=== PATIENT | male | born 1940 | race Caucasian/White ===

== ENCOUNTER 2016-09-21 17:55 | Inpatient (IN) | payer OTHER ==
[~2016-09-21] VITALS: Ht 170.2 cm; Wt 83.2 kg
--- NOTE | ~2016-09-21 | 2DMMODE ---
[facility] [place] [employer] [place] [address] 2 D/M-MODE ECHOCARDIOGRAM Name: TANO KEMP Room #: 247-P [facility] IN .#: [id number] Admission: 09/22/16 Attend Phys: Eddie Chambers, Discharge: Date of : 42 Date of Service: 09/22/16 1124 Report #: [id number] THIS REPORT FOR: //name// APPROVED REPORT EXAM: Comprehensive 2D, Doppler, and color-flow Echocardiogram Patient Location: In-Patient Other Information Study Quality: Adequate Indications CAD Study was performed STAT in the Video Control Operator. Tricuspid Valve TR Peak Rupert.: 2.18 m/s TR Peak Gr.: 18.93 mmHg Left Ventricle The left ventricle is normal size. There is normal LV segmental wall motion. There is normal left ventricular wall thickness. The left ventricular systolic function is normal. The left ventricular ejection fraction is within the normal range. LVEF is 55-60%. Diastolic function was not assessed. Right Ventricle Right ventricle is dilated. The right ventricular systolic function is normal. Atria The left atrium size is normal. Right atrium is dilated. Aortic Valve The aortic valve is normal in structure. No aortic regurgitation is present. There is no aortic valvular stenosis. Mitral Valve The mitral valve is normal in structure. There is no mitral valve regurgitation noted. Tricuspid Valve The tricuspid valve is normal in structure. There is moderate [facility] [address] [place] [address] 2 D/M-MODE ECHOCARDIOGRAM Name: TANO KEMP Room #: 247-P ADM IN M.R.#: [id number] Admission: 09/22/16 Attend Phys: Eddie Chambers, Discharge: Date of : 42 Date of Service: 09/22/16 1124 Report #: [id number] tricuspid regurgitation.There is no pulmonary hypertension. The estimated PAP is 19 mmHg plus the right atrial pressure. Pulmonic Valve The pulmonary valve is normal in structure. There is no pulmonic valvular regurgitation. Great Vessels The aortic root is normal in size. IVC is not visualized. Pericardium There is no pericardial effusion. <Conclusion> The left ventricle is normal size. There is normal LV segmental wall motion. LVEF is 55-60%. Right ventricle is dilated. The right ventricular systolic function is normal. Right atrium is dilated. There is moderate tricuspid regurgitation.There is no pulmonary hypertension. The estimated PAP is 19 mmHg plus the right atrial pressure. <ELECTRONICALLY SIGNED> By: Bladimir Dowell MD 09/22/16 1124 1124 1124 Bladimir Dowell MD /INF
--- NOTE | ~2016-09-21 | D ---
[facility] [place] [address] DISCHARGE SUMMARY Name: TANO KEMP Room #: 203-P [facility] IN M.R.#: [id number] Admission: 09/22/16 Attend Phys: Eddie Chambers MD, Discharge: 09/24/16 Date of : 42 Report #: [id number] THIS REPORT FOR: //name// CC: FAM unknown Eddie Gold MD HOSPITAL COURSE: The patient is a 75-year-old male who was admitted with an accelerating anginal pattern, despite the fact that his insurance company refused to allow cardiac catheterization prior to that. Subsequently he was taken to the catheterization lab which revealed multiple areas of subtotal RCA, partially collateralized. He subsequently was able to have temporary vessel closure due to the complex anatomy, was able to eventually dilate and stent proximal, mid, and distal RCA. There was placement of a 2.75 x 30 Resolute drug-eluting stent, postdilated 3.1 mm in the proximal portion of this vessel, and these were all subtotaled areas and very complex, in fact the proximal area was closed ____ with the wire, a 2.5 x 18 Resolute ____ at the distal right and then the PDA with a 2.5 x 12 Resolute. Final result was excellent. Troponin went to 9, resolution of EKG changes and chest pain after the procedure. The EKG is T-wave flattening throughout the inferolateral leads and remains in sinus rhythm. He had moderate disease in his left system otherwise, 60% LAD diagonal lesions which we will keep an eye on this ____ subtle progression there since the last catheterization in 2013. A Redmond-Yoel catheter replaced due to the mckenzie course in the catheterization lab and IV fluid was given ____ presumed partial right ventricular infarct, although again infarct was minimal due to the only temporary closure of this vessel. Up and ambulating, doing well. He will be discharged to home on dual antiplatelet therapy, full aspirin and Effient, in addition lisinopril 2.5, atorvastatin 40, gabapentin, Toprol 12.5, omeprazole. DISCHARGE DIAGNOSES: Coronary artery disease, unstable angina, successful percutaneous transluminal coronary angioplasty stent times 3, 2 to the right coronary and 1 to the posterior descending coronary artery. 2. Moderate left anterior descending coronary artery diagonal disease as stated above. 3. Hypertension. 4. Hypercholesterolemia. 5. Degenerative joint disease. 6. Abdominal aortic aneurysm 4.8 cm. This will be followed closely. We are planning on potential aortic stent graft. This should be put on hold for at least 6 months. I will see him in 2 to 3 months with an abdominal ultrasound in followup. Then, we will make some plans for repair of the abdominal aortic aneurysm in the next [address] [address] DISCHARGE SUMMARY Name: TANO KEMP Room #: 203-P DIS IN M.R.#: [id number] Admission: 09/22/16 Attend Phys: Eddie Chambers MD, Discharge: 09/24/16 Date of : 42 Report #: [id number] 6 to 12 months. We will repeat the abdominal ultrasound in 3 months when I see him. No lifting for 48 hours, no lying in tub, Jacuzzi, or Orr for a week. <ELECTRONICALLY SIGNED> By: Eddie Chambers MD, FACC 09/27/16 0935 0739 1012 Eddie Chambers MD, FACC /nt
--- NOTE | ~2016-09-21 | EKG ---
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: Sae PETERS : 1940 Requested By: Melanie Sousa Order Number: [id number] MD: David Tobar Measurements Intervals [place] Rate: 68 P: 27 SD: 127 QRS: 14 QRSD: 97 T: 10 QT: 399 QTc: 425 Interpretive Statements Sinus rhythm Abnormal R-wave progression, early transition Borderline T wave abnormalities No previous ECG available for comparison Electronically Signed On 09-22-2016 7:50:29 CDT by David Tobar [email or web address] <ELECTRONICALLY SIGNED> By: David Tobar MD, [facility] 09/22/16 0750 03 03 David Tobar MD, FAC /EPI
--- NOTE | ~2016-09-21 | CATHLAB ---
[facility] [address] [place] [address] INVASIVE PROCEDURE REPORT Name: TANO KEMP Room #: 203-P [facility] IN M.R.#: [id number] Admission: 09/22/16 Attend Phys: Eddie Chambers, Discharge: 09/24/16 Date of : 42 Date of Service: 09/22/16 0957 Report #: [id number] THIS REPORT FOR: //name// CC: FAM unknown Eddie Chambers PROCEDURES: Left ventriculography, coronary angiography, abdominal aortography, PTCA stent times 2 to the RCA, PTCA stent to the PDA and Bruceton-Yoel catheter left in for monitoring purposes. DESCRIPTION OF PROCEDURE: The patient brought to the catheterization lab with anginal symptoms accelerating. The right groin prepped and draped in sterile manner. Xylocaine 1% was used for local anesthesia. Versed was given for conscious sedation. A 6-Macanese sheath in the right femoral artery. A 7-Macanese in the right femoral vein. Initially, a straight pigtail catheter performed a single SHEN ventriculogram with mild LV dysfunction globally, slightly worse inferior base and EF of 50. FL4 for the left coronary system, FR4 for the right coronary system. A 60% mid LAD, 70% proximal diagonal, had not significantly progressed. Left main free of disease. Circ OM nondominant with large, but mildly diseased. Dominant right subtotally occluded now, with complex lesion proximally. Distal lesion high grade subtotal 99% and then an ostial PDA also subtotal. There was some collateral filling from the left system. I elected to attempt to dilate this vessel. I subsequently had closure of the proximal vessel immediately after placing a wire in this complex proximal segment. With a fair amount of difficulty time, multiple wires and balloon support, was able to eventually cross this lesion and then distally still had difficulty wiring the 2 subtotal distal lesions. I was able to restore some flow. I did transiently have vessel closure. Heparin had been given initially and additional heparin. I was able to restore some flow and able to wire the distal vessel. I then subsequently stented the proximal segment with a 2.75 x 30 Resolute drug-eluting stent. That result was excellent. Still had difficulty with the distal flow. I dilated distally again and then placed a 2.5 x 12 at the ostium PDA, Resolute drug eluting and then a 2.5 x 18 in the distal right. Both of these had been subtotally occluded. I was able then to restore JAKE grade 3 flow. Significant discomfort, pain and EKG changes, all which are resolving. The EKG has resolved. Hypotensive, responding to some fluids. I placed a Bruceton-Yoel catheter for monitoring purposes. This was left in. Will be sent to the ICU in guarded, but certainly improving condition after this right coronary artery closure. Integrilin bolus and drip has been initiated. Matthews catheter is being placed. I did receive one amp of atropine while still significantly bradycardic. This is essentially resolved. Pulses in the 50s. Vascular sheaths are secured. No hematoma. HEMODYNAMICS: Aortic 118/76. LV 112/11. RA mean of 9. RV 28/3. PA 24/13 with a mean of 17. The wedge was 13-14. IMPRESSION: [facility] [address] [place] [address] INVASIVE PROCEDURE REPORT Name: TANO KEMP Room #: 203-P [facility] IN [place]#: [id number] Admission: 09/22/16 Attend Phys: Eddie Chambers, Discharge: 09/24/16 Date of : 42 Date of Service: 09/22/16 0957 Report #: [id number] 1. Successful percutaneous transluminal coronary angioplasty stent of the subtotal long complex proximal right coronary artery with a 2.75 x 30 Resolute stent of 3.0 mm. 2. Successful percutaneous transluminal coronary angioplasty stent distal right subtotally occluded with a 2.5 x 18 Resolute drug-eluting stent. 3. Successful percutaneous transluminal coronary angioplasty stent of the ostial posterior descending artery totally occluded with a 2.5 x 12 Resolute drug-eluting stent. 4. Left main free of disease. 5. Left anterior descending with 50% to 60% mid vessel lesion, 60% to 70% diagonal and 60% to 70% proximal. We will follow, these have not progressed. 6. Circumflex obtuse marginal nondominant, with mild disease, large. 7. Left ventricle near normal with a subtle inferior wall lag. 8. Abdominal aorta is intact. There is a moderately large aortic aneurysm. It appears there is a small inferior mesenteric artery that remains patent. This will need intervention prior to stent graft procedure, which will now be put on hold until recovery from these stents. This will be 3-[address] The patient is guarded, but in stabilizing condition on low-dose dopamine at 5 mcg and transfer to the ICU with arterial line and Bruceton-Yoel catheter in place. <ELECTRONICALLY SIGNED> By: Eddie Chambers MD, [facility] 09/27/16 0934 0957 1118 Eddie Chambers MD, FACC /nt
--- NOTE | ~2016-09-21 | EKG ---
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: SAAD : 1940 Requested By: Eddie Chambers Order Number: [id number] MD: Mahad Thomas Measurements Intervals [place] Rate: 69 P: 18 MN: 107 QRS: 14 QRSD: 93 T: -1 QT: 426 QTc: 457 Interpretive Statements Sinus rhythm Short MN interval Nonspecific T abnormalities, anterior leads Compared to ECG 09/23/2016 07:20:58 Short MN interval now present T-wave abnormality still present Electronically Signed On 09-24-2016 18:19:00 CDT by Mahad Thomas [email or web address] <ELECTRONICALLY SIGNED> By: Mahad Thomas MD 09/24/16 1819 4 Mahad Thomas MD /NASEEM
--- NOTE | ~2016-09-21 | EKG ---
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: SAAD : 1940 Requested By: Eddie Chambers Order Number: [id number] MD: David Tobar Measurements Intervals [place] Rate: 65 P: 75 SC: 123 QRS: 18 QRSD: 145 T: 33 QT: 407 QTc: 424 Interpretive Statements Sinus rhythm Early R wave progression Baseline wander in lead(s) V3,V4,V6 Compared to ECG 09/21/2016 19:04:57 No significant change was found Electronically Signed On 09-23-2016 8:19:35 CDT by David Tobar [email or web address] <ELECTRONICALLY SIGNED> By: David Tobar MD, [facility] 09/23/16 0819 1156 1156 David Tobar MD, [facility] /EPI
--- NOTE | ~2016-09-21 | EKG ---
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 : 1940 Requested By: Eddie Chambers Order Number: [id number] MD: David Tobar Measurements Intervals [place] Rate: 74 P: 30 CA: QRS: 16 QRSD: 98 T: -18 QT: 392 QTc: 435 Interpretive Statements Sinus rhythm Borderline low voltage, extremity leads Abnormal R-wave progression, early transition Nonspecific T wave abnormality Compared to ECG 09/21/2016 19:04:[address] in the ST-T wave segments Electronically Signed On 09-23-2016 8:35:18 CDT by David Tobar [email or web address] <ELECTRONICALLY SIGNED> By: David Tobar MD, [facility] 09/23/16 0835 9 David Tobar MD, [facility] /EPI
[~2016-09-21 17:55] MED LIST: ASPIRIN325 PO; EFFIENT10 MG PO; LIPITOR80 MG PO; LISINOPRIL2.5 MG PO; LOPRESSOR25 PO; MAXALT MLT5 MG; NITROGLYCERIN0.4 MG SL; PLAVIX 75 MG TA75 M1 PO
[2016-09-21 18:45] VITALS: BP 150/88
[2016-09-21 19:01] LABS: HEMOGLOBIN 14.7 gm/dL (14.0-18.0); MCH 33.5 pg (26.0-34.0); MCHC 34.9 g/dL (28.0-37.0); MCV 95.8 fL (80.0-100.0); RBC 4.38 mil/uL (4.50-6.00); RDW 12.7 % (10.5-14.5); WBC 4.1 thou/uL (4.0-11.0)
[2016-09-21 19:09] LABS: ANION GAP 8 mmol/L (7-16); BUN 10 mg/dL (7-18); CALCIUM 8.8 mg/dL (8.5-10.1); CHLORIDE 105 mmol/L (98-107); CO2 28 mmol/L (21-32); GLUCOSE 120 mg/dL (70-99); POTASSIUM 3.6 mmol/L (3.5-5.1); SODIUM 141 mmol/L (136-145)
[2016-09-21 19:16] LABS: ALBUMIN 4.1 g/dL (3.4-5.0); ALKALINE PHOSPHATASE 53 U/L (46-116); SGOT 22 U/L (15-37); SGPT 34 U/L (30-65); TOTAL BILIRUBIN 0.7 mg/dL (<0.1-1.0); TOTAL PROTEIN 7.4 g/dL (6.4-8.2); TROPONIN-I < 0.04 ng/mL (<0.04-0.07)
[2016-09-21] MEDS ORDERED: OMEPRAZOLE 20 M20 M1 PO (19:30)
[2016-09-21 23:51] VITALS: BP 96/65
[2016-09-22] VITALS (33 sets, daily range): BP systolic 75–139; BP diastolic 53–91
[2016-09-22 14:35] LABS: HEMATOCRIT 36.5 % (42.0-52.0); MCHC 35.7 g/dL (28.0-37.0); MCV 95.1 fL (80.0-100.0); RBC 3.84 mil/uL (4.50-6.00); RDW 12.3 % (10.5-14.5); WBC 5.8 thou/uL (4.0-11.0)
[2016-09-22 14:48] LABS: CREATININE 0.6 mg/dL (0.6-1.3); POTASSIUM 3.1 mmol/L (3.5-5.1)
[2016-09-22 14:51] LABS: CALCIUM 6.7 mg/dL (8.5-10.1)
[2016-09-22 14:59] LABS: MAGNESIUM 1.6 mg/dL (1.8-2.4)
[2016-09-22 15:02] LABS: TROPONIN-I 0.78 ng/mL (<0.04-0.07)
[2016-09-22 23:02] LABS: MAGNESIUM 1.9 mg/dL (1.8-2.4); POTASSIUM 3.8 mmol/L (3.5-5.1)
[2016-09-23] VITALS (22 sets, daily range): BP systolic 72–117; BP diastolic 44–79
[2016-09-23 04:14] LABS: HEMATOCRIT 34.8 % (42.0-52.0); HEMOGLOBIN 12.2 gm/dL (14.0-18.0); MCH 34.1 pg (26.0-34.0); MCHC 35.2 g/dL (28.0-37.0); MCV 96.8 fL (80.0-100.0); RBC 3.59 mil/uL (4.50-6.00); RDW 12.6 % (10.5-14.5); WBC 5.3 thou/uL (4.0-11.0)
[2016-09-23 04:54] LABS: ANION GAP 12 mmol/L (7-16); BUN 10 mg/dL (7-18); CALCIUM 7.7 mg/dL (8.5-10.1); CHLORIDE 107 mmol/L (98-107); CHOLESTEROL 121 mg/dL (<200); CO2 21 mmol/L (21-32); CREATININE 0.7 mg/dL (0.6-1.3); GLUCOSE 89 mg/dL (70-99); HDL CHOLESTEROL 40 mg/dL (>40); LDL CHOLESTEROL 69 mg/dL (<100); POTASSIUM 3.5 mmol/L (3.5-5.1); SODIUM 140 mmol/L (136-145); TRIGLYCERIDE 60 mg/dL (<150); VLDL 12 mg/dL (<40)
[2016-09-23 04:55] LABS: SERUM ASSESSMENT Clear
[2016-09-23 05:16] LABS: TROPONIN-I 9.34 ng/mL (<0.04-0.07)
[2016-09-24 03:48] LABS: CALCIUM 8.2 mg/dL (8.5-10.1); CREATININE 0.8 mg/dL (0.6-1.3); POTASSIUM 3.8 mmol/L (3.5-5.1)
[2016-09-24 04:15] VITALS: BP 108/71
[2016-09-24 04:40] VITALS: BP 108/71
[2016-09-24] MEDS ORDERED: ATORVASTATIN CA40 MG PO (06:56)
[2016-09-24] MEDS ORDERED: EFFIENT10 MG PO (06:56)
[2016-09-24] MEDS ORDERED: ASPIRIN EC325 M1 PO (06:57)
[2016-09-24] MEDS ORDERED: LOPRESSOR25 PO (06:57)
[2016-09-24 08:09] VITALS: BP 108/71
[2016-09-24 08:10] VITALS: BP 108/71
[2016-09-24 08:11] VITALS: BP 132/83
== END 2016-09-24 08:43 | disposition home or self-care (01) | DRG 247 ==
LOC: 2N 17:55 → ICU 09-22 09:21 → 2N 09-23 11:07
PROVIDERS: Internal Medicine Cardiovascular Disease; Nurse Practitioner Gerontology
PROC: B4101ZZ Fluoroscopy of Abdominal Aorta using Low Osmolar Contrast (ICD-10-PCS; principal; 2016-09-22)
PROC: B2151ZZ Fluoroscopy of Left Heart using Low Osmolar Contrast (ICD-10-PCS; principal; 2016-09-22)
PROC: 02703DZ Dilation of Coronary Artery, One Artery with Intraluminal Device, Percutaneous Approach (ICD-10-PCS; principal; 2016-09-22)
PROC: 4A023N7 Measurement of Cardiac Sampling and Pressure, Left Heart, Percutaneous Approach (ICD-10-PCS; principal; 2016-09-22)
PROC: B2111ZZ Fluoroscopy of Multiple Coronary Arteries using Low Osmolar Contrast (ICD-10-PCS; principal; 2016-09-22)
PROC: 027135Z Dilation of Coronary Artery, Two Arteries with Two Drug-eluting Intraluminal Devices, Percutaneous Approach (ICD-10-PCS; principal; 2016-09-22)
DX: I25.110 Atherosclerotic heart disease of native coronary artery with unstable angina pectoris (principal); I10 Essential (primary) hypertension; M19.90 Unspecified osteoarthritis, unspecified site; E78.00 Pure hypercholesterolemia, unspecified; I71.4 Abdominal aortic aneurysm, without rupture; I95.9 Hypotension, unspecified; Z79.82 Long term (current) use of aspirin; Z79.899 Other long term (current) drug therapy
CPT/HCPCS: 10078; 10081

== ENCOUNTER → 2017-01-14 | Outpatient (CLI) | payer OTHER ==
[~2017-01-14] MED LIST changes: +ASPIRIN EC325 M1 PO; +ATORVASTATIN CA40 MG PO; +OMEPRAZOLE 20 M20 M1 PO
== END ==
LOC: CAT 08:45
DX: I71.4 Abdominal aortic aneurysm, without rupture (principal); I25.10 Atherosclerotic heart disease of native coronary artery without angina pectoris

== ENCOUNTER → 2018-08-18 | Outpatient (CLI) | payer OTHER ==
[~2018-08-18] MED LIST changes: +ASPIR 8181 MG PO; +ASPIR-TRIN325 MG PO; +LISINOPRIL2.5 M1 PO; +MAXALT MLT ODT10 M1 PO; +MULTIVITAMINS PO; +NEURONTIN 400400 M1 PO; +NITROGLYCERIN0.4 MG SUBLING; +NORCO 5-325 TA1 EACH PO; +VITAMIN E400 UNI2 PO; +VITAMINC500 PO
[2018-08-18 09:07] LABS: CREATININE 0.8 mg/dL (0.7-1.3)
== END ==
LOC: CAT 08:17
PROVIDERS: Nuclear Medicine Nuclear Cardiology
DX: Z01.812 Encounter for preprocedural laboratory examination (principal); I71.4 Abdominal aortic aneurysm, without rupture; I25.84 Coronary atherosclerosis due to calcified coronary lesion; K57.30 Diverticulosis of large intestine without perforation or abscess without bleeding; K42.9 Umbilical hernia without obstruction or gangrene; M47.815 Spondylosis without myelopathy or radiculopathy, thoracolumbar region; I10 Essential (primary) hypertension; I25.10 Atherosclerotic heart disease of native coronary artery without angina pectoris; M19.90 Unspecified osteoarthritis, unspecified site; Z95.828 Presence of other vascular implants and grafts

== ENCOUNTER → 2020-04-14 | Outpatient (CLI) | payer OTHER | LOC: SJCVC 11:51 | PROVIDERS: ATTEND Internal Medicine Cardiovascular Disease | DX: I25.10 Atherosclerotic heart disease of native coronary artery without angina pectoris (principal); R94.31 Abnormal electrocardiogram [ECG] [EKG]; I10 Essential (primary) hypertension; E78.00 Pure hypercholesterolemia, unspecified; I71.4 Abdominal aortic aneurysm, without rupture; I65.23 Occlusion and stenosis of bilateral carotid arteries; Z95.828 Presence of other vascular implants and grafts; Z79.899 Other long term (current) drug therapy ==

== ENCOUNTER → 2020-05-01 | Outpatient (CLI) | payer OTHER | LOC: SJCVCIMAG 08:13 | PROVIDERS: ATTEND Internal Medicine Cardiovascular Disease | DX: I65.23 Occlusion and stenosis of bilateral carotid arteries (principal); I25.10 Atherosclerotic heart disease of native coronary artery without angina pectoris; I10 Essential (primary) hypertension; I77.9 Disorder of arteries and arterioles, unspecified; Z79.899 Other long term (current) drug therapy ==

== ENCOUNTER → 2021-06-04 | Outpatient (CLI) | payer OTHER | LOC: SJCVC 09:09 | PROVIDERS: ATTEND Internal Medicine Cardiovascular Disease | DX: R94.31 Abnormal electrocardiogram [ECG] [EKG] (principal); I10 Essential (primary) hypertension; E78.00 Pure hypercholesterolemia, unspecified; I71.4 Abdominal aortic aneurysm, without rupture; I65.23 Occlusion and stenosis of bilateral carotid arteries; S61.502A Unspecified open wound of left wrist, initial encounter; E78.5 Hyperlipidemia, unspecified; M19.90 Unspecified osteoarthritis, unspecified site; Z98.890 Other specified postprocedural states; Z88.8 Allergy status to other drugs, medicaments and biological substances; Z79.899 Other long term (current) drug therapy ==

== ENCOUNTER → 2021-06-11 | Outpatient (CLI) | payer OTHER | LOC: HYPER 08:51 | PROVIDERS: ATTEND Emergency Medicine | DX: S61.412A Laceration without foreign body of left hand, initial encounter (principal); S60.222A Contusion of left hand, initial encounter; I65.23 Occlusion and stenosis of bilateral carotid arteries; I10 Essential (primary) hypertension; E78.00 Pure hypercholesterolemia, unspecified; I25.10 Atherosclerotic heart disease of native coronary artery without angina pectoris; E78.5 Hyperlipidemia, unspecified; M19.90 Unspecified osteoarthritis, unspecified site; Z90.89 Acquired absence of other organs; Z98.890 Other specified postprocedural states; Z79.899 Other long term (current) drug therapy; V89.2XXA Person injured in unspecified motor-vehicle accident, traffic, initial encounter; Y93.89 Activity, other specified; Y92.89 Other specified places as the place of occurrence of the external cause; Y99.8 Other external cause status ==

== ENCOUNTER → 2021-06-18 | Outpatient (CLI) | payer OTHER | LOC: HYPER 10:11 | PROVIDERS: ATTEND Emergency Medicine | DX: S61.412D Laceration without foreign body of left hand, subsequent encounter (principal); S60.222D Contusion of left hand, subsequent encounter; I10 Essential (primary) hypertension; I65.23 Occlusion and stenosis of bilateral carotid arteries; E78.00 Pure hypercholesterolemia, unspecified; I25.10 Atherosclerotic heart disease of native coronary artery without angina pectoris; E78.5 Hyperlipidemia, unspecified; M19.90 Unspecified osteoarthritis, unspecified site; Z79.899 Other long term (current) drug therapy; V89.2XXD Person injured in unspecified motor-vehicle accident, traffic, subsequent encounter ==